=== PATIENT | female | born 1960 | race Caucasian/White ===

== ENCOUNTER 2024-06-20 12:32 | Day surgery (SDC) | payer OTHER ==
[2024-06-19 12:07] LABS: BASOPHILS ABSOLUTE AUTO 0.06 K/mm3 (0.00-0.23); BASOPHILS PERCENT AUTO 1 % (0-2); EOSINOPHILS PERCENT AUTO 4 % (0-6); Hematocrit 42.6 % (33.0-51.0); Hemoglobin 14.2 g/dL (11.5-16.0); IMMATURE GRAN ABSOLUTE AUTO 0.01 K/mm3 (0.00-0.10); IMMATURE GRAN PERCENT AUTO 0 % (0-1); LYMPHOCYTES ABSOLUTE AUTO 1.52 K/mm3 (0.84-5.20); LYMPHOCYTES PERCENT AUTO 21 % (21-46); MONOCYTES PERCENT AUTO 7 % (4-13); Mean Corpuscular HGB 29.5 pg (26.0-34.0); Mean Corpuscular HGB Conc 33.3 g/dL (31.5-36.5); Mean Corpuscular Volume 89 fL (80-100); NEUTROPHILS ABSOLUTE AUTO 4.86 K/mm3 (1.96-9.15); NEUTROPHILS PERCENT AUTO 67 % (41-73); Platelet Count 404 K/mm3 (150-400); RDW Coefficient Variation 13.2 % (11.7-14.2); RDW Standard Deviation 43.2 fL (35.1-46.3); Red Blood Cell Count 4.81 M/mm3 (3.80-5.20); White Blood Cell Count 7.25 K/mm3 (4.00-11.30)
[2024-06-19 14:08] LABS: Bun/Creatinine Ratio 22.2 (12.0-20.0); Calcium, Blood 9.6 mg/dL (8.5-10.1); Creatinine, Blood 0.72 mg/dL (0.40-1.00); Potassium, Blood 3.7 mmol/L (3.5-5.5)
[~2024-06-20] VITALS: Ht 162.6 cm; Wt 111.4 kg
[2024-06-20] VITALS (12 sets, daily range): BP systolic 107–149; BP diastolic 60–81
[~2024-06-20 12:32] MED LIST: Bystolic20 MG PO; CeFAZolin Sodium 2,000 MG in NS 100 ML IV SCH; DIAZ2 PO; LOSA50 PO; Lactated Ringer's 1,000 ML IV SCH; MECL25 PO; VITAMIN D31250 MC2 PO
[2024-06-20] MEDS ORDERED: Bupivacaine 0.5% HCl 5 MG/ML 30MLVIAL ONE (12:42)
--- NOTE | 2024-06-20 13:00 | NUR ---
History, Chart, Medications and Allergies reviewed before start of procedure. Lungs clear T/O to Auscultation. Patient confirms NPO status and agrees with scheduled surgery. Pre-Op teaching done. Pt verbalizes understanding. Patient reports completing Chlorhexadine shower X2 prior to admission to hospital.
[2024-06-20] MEDS ORDERED: FentaNYL Citrate 50 MCG/ML 2 ML Injection ONE ×2 (13:58→15:56)
[2024-06-20] MEDS ORDERED: propofoL 20 ML IV ONE (13:58)
[2024-06-20] MEDS ORDERED: Dexamethasone Sod Phos 10 MG/ML 1ML VIAL ONE (14:20)
[2024-06-20] MEDS ORDERED: ePHEDrine Sulfate 50 MG/ML 1ML Injection ONE (14:28)
[2024-06-20] MEDS ORDERED: Rocuronium Bromide 10 MG/ML 5ML Injection IV ONE (16:32)
[2024-06-20] MEDS ORDERED: Glycopyrrolate 0.2 MG/ML 5ML VIAL ONE (17:24)
[2024-06-20] MEDS ORDERED: HYDROmorphone HCl/Pf 1MG SYR ONE (17:30)
[2024-06-20] MEDS ORDERED: Sugammadex Sodium 200 MG/2ML SDV (100 MG/ML) ONE (17:50)
[2024-06-20] MEDS ORDERED: OxyCODONE 5 mg/Acetamin 325 mg TABLET PO PRN (19:15)
[2024-06-20] MEDS ORDERED: Simethicone 80 MG Chew PO PRN (19:15)
[2024-06-20] MEDS ORDERED: HYDROmorphone HCl/Pf 1MG SYR IV PRN (19:15)
[2024-06-20] MEDS ORDERED: Lactated Ringer's 1,000 ML IV SCH (19:15)
[2024-06-20] MEDS ORDERED: FLU VACC TS2024-25(6MOS UP)/PF 45 MCG/0.5 ML SYRINGE IM SCH (19:15)
[2024-06-20] MEDS ORDERED: Naloxone HCl 0.4MG / ML 1ML Vial IV PRN (19:15)
[2024-06-20] MEDS ORDERED: Promethazine HCl 25 MG Tab PO PRN (19:20)
[2024-06-20] MEDS ORDERED: Promethazine HCl 12.5 MG Supp PR PRN (19:20)
[2024-06-20] MEDS ORDERED: Ketorolac Tromethamine 30mg Vial IV PRN (19:30)
[2024-06-20] MEDS ORDERED: CeFAZolin Sodium 2,000 MG in NS 100 ML IV SCH (21:00)
[2024-06-21 03:24] VITALS: BP 145/71
--- NOTE | 2024-06-21 04:51 | NUR ---
SHIFT SUMMARY PT A&O X4, ABLE TO MAKE NEEDS KNOWN. PT ARRIVED TO SURGICAL UNIT AT APPROXIMATELY 1954. PT SLID TO HOSPITAL BED. PT WAS QUITE SLEEPY UPON ARRIVAL BUT IS NOW MORE AWAKE AND CONVERSATIONAL. VSS, AFEBRILE, SPO2 >93% ON 2L NC. 4 PORT SITES ON ABDOMEN, MID SITE COVERED WITH AQUACEL. ALL DRESSINGS C/D/I. PAIN AND NAUSEA MEDICATED PER EMAR. RONQUILLO IN PLACE DRAINING DARK YELLOW URINE. LR INFUSING. PT IS RESTING QUIETLY IN BED, BREATHING IS EVEN AND UNLABORED, CALL LIGHT IN REACH.
[2024-06-21 07:26] VITALS: BP 131/60
[2024-06-21 12:32] VITALS: BP 130/59
--- NOTE | 2024-06-21 13:25 | NUR ---
DISCHARGE NOTE PT TOLERATING REG DIET AND FLUIDS, PAIN MANAGED W/ PO PAIN MEDS. INCISIONS C/D/I, PT IND TO BATHROOM, VOIDING, BINDER IN PLACE. SCANT VAG BLEEDING. PT DC'D VIA WC TO PRIVATE RIDE HOME W/ BELONGINGS AND DC INSTRUCTIONS.
== END 2024-06-21 13:20 | disposition home or self-care (01) ==
LOC: ORSCMMR 12:32 → ORD 12:45 → ORSCMMR 14:00 → SURS 20:00 → ORSCMMR 23:27
PROVIDERS: Obstetrics & Gynecology
PROC: 0DNP4ZZ Release Rectum, Percutaneous Endoscopic Approach (ICD-10-PCS; principal; 2024-06-20 14:00)
PROC: 0UT9FZZ Resection of Uterus, Via Natural or Artificial Opening With Percutaneous Endoscopic Assistance (ICD-10-PCS; principal; 2024-06-20 14:00)
PROC: 0UT2FZZ Resection of Bilateral Ovaries, Via Natural or Artificial Opening With Percutaneous Endoscopic Assistance (ICD-10-PCS; principal; 2024-06-20 14:00)
PROC: 8E0W4CZ Robotic Assisted Procedure of Trunk Region, Percutaneous Endoscopic Approach (ICD-10-PCS; principal; 2024-06-20 14:00)
PROC: 0UT7FZZ Resection of Bilateral Fallopian Tubes, Via Natural or Artificial Opening With Percutaneous Endoscopic Assistance (ICD-10-PCS; principal; 2024-06-20 14:00)
DX: N95.0 Postmenopausal bleeding (principal); N85.00 Endometrial hyperplasia, unspecified; Z85.3 Personal history of malignant neoplasm of breast; D25.9 Leiomyoma of uterus, unspecified; N73.6 Female pelvic peritoneal adhesions (postinfective); N83.8 Other noninflammatory disorders of ovary, fallopian tube and broad ligament; I10 Essential (primary) hypertension; E66.01 Morbid (severe) obesity due to excess calories; Z68.41 Body mass index [BMI] 40.0-44.9, adult; Z79.899 Other long term (current) drug therapy
CPT/HCPCS: 36415; 80048; 85025; 86850; 86900; 86901; 88307; 94762; A9270; J0690; J1100; J1171; J1885; J2704; J3010; J7120

== ENCOUNTER 2024-06-29 12:42 | Inpatient (IN) | payer OTHER ==
[~2024-06-29] VITALS: Ht 162.6 cm; Wt 107.9 kg
[~2024-06-29 12:42] MED LIST changes: -CeFAZolin Sodium 2,000 MG in NS 100 ML IV SCH; -Lactated Ringer's 1,000 ML IV SCH
[2024-06-29 13:17] LABS: BASOPHILS ABSOLUTE AUTO 0.07 K/mm3 (0.00-0.23); BASOPHILS PERCENT AUTO 0 % (0-2); EOSINOPHILS ABSOLUTE AUTO 0.07 K/mm3 (0.00-0.68); EOSINOPHILS PERCENT AUTO 0 % (0-6); Hematocrit 38.5 % (33.0-51.0); Hemoglobin 13.3 g/dL (11.5-16.0); IMMATURE GRAN ABSOLUTE AUTO 0.11 K/mm3 (0.00-0.10); IMMATURE GRAN PERCENT AUTO 1 % (0-1); LYMPHOCYTES ABSOLUTE AUTO 0.77 K/mm3 (0.84-5.20); LYMPHOCYTES PERCENT AUTO 4 % (21-46); MONOCYTES ABSOLUTE AUTO 1.18 K/mm3 (0.16-1.47); MONOCYTES PERCENT AUTO 7 % (4-13); Mean Corpuscular HGB 30.2 pg (26.0-34.0); Mean Corpuscular HGB Conc 34.5 g/dL (31.5-36.5); Mean Corpuscular Volume 88 fL (80-100); Mean Platelet Volume 9.5 fL (9.1-12.4); NEUTROPHILS ABSOLUTE AUTO 15.97 K/mm3 (1.96-9.15); NEUTROPHILS PERCENT AUTO 88 % (41-73); Platelet Count 498 K/mm3 (150-400); White Blood Cell Count 18.17 K/mm3 (4.00-11.30)
[2024-06-29] MEDS ORDERED: Piperacillin/Tazobactam Sod 4.5 GM in NS 100 ML IV ONE (13:25)
[2024-06-29] MEDS ORDERED: Acetaminophen 325 MG TABLET PO ONE (13:25)
[2024-06-29] MEDS ORDERED: Ondansetron HCl 2 MG / ML 2ML Vial IV ONE (13:25)
[2024-06-29] MEDS ORDERED: NS 1,000 ML IV SCH ×2 (13:25→17:40)
[2024-06-29 13:36] LABS: Albumin/Globulin Ratio 0.6 (0.8-1.8); Bun/Creatinine Ratio 18.5 (12.0-20.0); Calcium, Blood 9.7 mg/dL (8.5-10.1); Creatinine, Blood 0.81 mg/dL (0.40-1.00); Globulin, Blood 4.8 g/dL (2.2-4.0); Potassium, Blood 3.7 mmol/L (3.5-5.5); Total Protein, Blood 7.8 g/dL (6.4-8.2)
[2024-06-29] MEDS ORDERED: Metoclopramide HCl 5MG / ML 2ML Vial IV PRN (17:40)
[2024-06-29] MEDS ORDERED: FLU VACC TS2024-25(6MOS UP)/PF 45 MCG/0.5 ML SYRINGE IM ONE (17:40)
[2024-06-29] MEDS ORDERED: Ondansetron HCl 2 MG / ML 2ML Vial IV PRN (17:40)
[2024-06-29] MEDS ORDERED: FentaNYL Citrate 50 MCG/ML 2 ML Injection IV PRN (17:45)
[2024-06-29] MEDS ORDERED: OxyCODONE 5 mg/Acetamin 325 mg TABLET PO PRN (17:45)
[2024-06-29] MEDS ORDERED: Piperacillin/Tazobactam Sod 3.375 GM in NS 100 ML IV SCH (18:30)
[2024-06-29 18:43] VITALS: BP 126/68
[2024-06-29] MEDS ORDERED: Vancomycin HCL 2,500 MG in NS 500 ML IV ONE (18:50)
[2024-06-29] MEDS ORDERED: Lactobacil 2-S.Thermo-Bifido 1 1 Cap PO SCH (21:00)
[2024-06-30] VITALS (14 sets, daily range): BP systolic 122–162; BP diastolic 62–101
[2024-06-30 01:19] LABS: Source, Urine Clean Catch
[2024-06-30 01:50] LABS: Bilirubin, Urine Neg (Neg); Blood, Urine 5+ (Neg); Glucose Qualitative, Urine Neg (Neg); Ketones, Urine Neg (Neg); Leukocyte Esterase, Urine 3+ (Neg); Nitrite, Urine Neg (Neg); Protein, Urine 2+ (Neg); Urobilinogen, Urine NORM (Normal); pH, Urine 6.5 (5.0-8.0)
[2024-06-30 02:02] LABS: Appearance, Urine Hazy (Clear); Color, Urine Pale Yellow (P-Yellow)
[2024-06-30 02:04] LABS: Amorphous Light (0-Heavy); Bacteria Many /hpf; Mucus Light (0-Heavy); Squamous Epithelial Cells Mod /hpf (Few); White Blood Cells, Urine 50-100 /hpf (0-5)
[2024-06-30 04:40] LABS: BASOPHILS ABSOLUTE AUTO 0.05 K/mm3 (0.00-0.23); BASOPHILS PERCENT AUTO 0 % (0-2); EOSINOPHILS ABSOLUTE AUTO 0.22 K/mm3 (0.00-0.68); EOSINOPHILS PERCENT AUTO 2 % (0-6); Hematocrit 33.6 % (33.0-51.0); Hemoglobin 11.7 g/dL (11.5-16.0); IMMATURE GRAN ABSOLUTE AUTO 0.06 K/mm3 (0.00-0.10); IMMATURE GRAN PERCENT AUTO 1 % (0-1); LYMPHOCYTES ABSOLUTE AUTO 1.16 K/mm3 (0.84-5.20); LYMPHOCYTES PERCENT AUTO 10 % (21-46); MONOCYTES ABSOLUTE AUTO 0.85 K/mm3 (0.16-1.47); MONOCYTES PERCENT AUTO 7 % (4-13); Mean Corpuscular HGB 30.6 pg (26.0-34.0); Mean Corpuscular HGB Conc 34.8 g/dL (31.5-36.5); Mean Corpuscular Volume 88 fL (80-100); Mean Platelet Volume 9.3 fL (9.1-12.4); NEUTROPHILS ABSOLUTE AUTO 9.45 K/mm3 (1.96-9.15); NEUTROPHILS PERCENT AUTO 80 % (41-73); Platelet Count 430 K/mm3 (150-400); RDW Coefficient Variation 13.1 % (11.7-14.2); RDW Standard Deviation 42.4 fL (35.1-46.3); Red Blood Cell Count 3.82 M/mm3 (3.80-5.20); White Blood Cell Count 11.79 K/mm3 (4.00-11.30)
[2024-06-30 05:00] LABS: Bun/Creatinine Ratio 17.2 (12.0-20.0); Creatinine, Blood 0.76 mg/dL (0.40-1.00); Potassium, Blood 3.5 mmol/L (3.5-5.5)
--- NOTE | 2024-06-30 07:28 | NUR ---
SHIFT SUMMARY NOC. PT ARRIVED TO SURGICAL UNIT PRIOR TO SHIFT CHANGE FOR NOC. PT A/O X4, PT AMBULATES TO BR WITH SBA FOR CORD MANAGEMENT. PT'S MIDLINE INCISION ABOVE UMBILICUS ACTIVELY DRAINING PURULENT DRAINAGE. CONSULTED WOUND CARE NURSE MACKENZIE KIM RN, CALCIUM ALGINATE APPLIED WITH SUPER ABSORBENT MEXTRA PAD. DRESSING CHANGED X2 THIS SHIFT. LAP SITES OPEN TO AIR AND CLEAN DRY AND INTACT. PT VOIDING, AND URINE SENT TO LAB THIS SHIFT. PT NPO SINCE 0000, ASIDE FROM ORAL PAIN MED. CALL LIGHT IN REACH.
[2024-06-30] MEDS ORDERED: Losartan Potassium 25 MG Tab PO SCH ×2 (09:00→21:00)
[2024-06-30] MEDS ORDERED: Vancomycin HCL 1,250 MG in NS 250 ML IV SCH (09:00)
[2024-06-30] MEDS ORDERED: Atenolol 25 MG Tab PO SCH (09:00)
[2024-06-30] MEDS ORDERED: propofoL 40 ML IV ONE (10:57)
[2024-06-30] MEDS ORDERED: Bupivacaine 0.5% HCl 5 MG/ML 30MLVIAL ONE (12:34)
--- NOTE | 2024-06-30 12:45 | NUR ---
PT BROUGHT FROM SURGICAL FLOOR TO DAY SURGERY DEPT. TO BE MADE READY FOR SURGERY. PT IDENTIFIED, PROCEDURE/CONSENT VERIFIED, PT NPO, BELONGINGS LEFT IN ROOM, VSS, PAS ON, IV TO 1L LR TKO. SURGEON AND ACP IN TO SEE PT. REPORT GIVEN TO JOB PRINTER APPRENTICE. AND PT WILL BE TAKEN TO OR.
[2024-06-30] MEDS ORDERED: FentaNYL Citrate 50 MCG/ML 2 ML Injection ONE (12:50)
[2024-06-30] MEDS ORDERED: Midazolam HCl 1MG / ML 2ML Vial ONE (12:50)
[2024-06-30] MEDS ORDERED: Rocuronium Bromide 10 MG/ML 5ML Injection IV ONE (12:50)
[2024-06-30] MEDS ORDERED: Ondansetron HCl 2 MG / ML 2ML Vial ONE (13:08)
[2024-06-30] MEDS ORDERED: Ketorolac Tromethamine 30mg Vial ONE (13:08)
[2024-06-30] MEDS ORDERED: Dexamethasone Sod Phos 10 MG/ML 1ML VIAL ONE (13:08)
[2024-06-30] MEDS ORDERED: Sugammadex Sodium 200 MG/2ML SDV (100 MG/ML) ONE ×2 (13:09→13:27)
--- NOTE | 2024-06-30 18:50 | NUR ---
END OF SHIFT NOTE. Pt went back to the OR for a washout this afternoon. Pt arrived back to the unit awake and chatty. Post op vitals all WNL. Pt has since been able to ambulate to the bathroom with standby assistance from staff. OR midline dressing remains CDI. New orders for wound care in chart. Pt having significant amount of family this afternoon. Pt is able to make needs known, call light is within reach.
[2024-07-01 00:56] VITALS: BP 155/78
--- NOTE | 2024-07-01 04:22 | NUR ---
SHIFT SUMMARY NOC. PT POD 1 FOR I&D FOR POST SURGICAL ABSCESS. PT'S MIDLINE INCISION IS C/D/I, PREVIOUS LAPS SITES ARE OPEN TO AIR AND HEALING. PT'S PAIN CONTROLLED WITH ORAL PERCOCET. PT VOIDING URINE AND TOLERATING PO INTAKE. PT A/O X4, AMBULATES TO WITH SBA FOR CORD MANAGEMENT. BED IN LOWEST POSITION, CALL LIGHT IN REACH.
[2024-07-01 05:06] VITALS: BP 144/72
[2024-07-01 07:12] VITALS: BP 129/60
--- NOTE | 2024-07-01 07:24 | NUR ---
DRESSING CHANGE. DRESSING CHANGE PERFORMED THIS MORNING AT 0536. WOUND CARE ORDERS REVIEWED. DAKINS NOT AVAILABLE ON FLOOR. CHARGE NURSE CALLED PHARMACY AND PHARMACY UNABLE TO RELEASE DAKINS WITHOUT CONCENTRATION SPECIFIC ORDER. MOISTENED KERLEX PACKING WITH STERILE WATER AND REMOVED EXCESS LIQUID. PASSED INFORMATION TO DAY SHIFT RN AMANDA TO FOLLOW UP WITH DAKINS ORDER. PT TOLERATED DRESSING CHANGE WELL.
[2024-07-01 08:15] LABS: BASOPHILS ABSOLUTE AUTO 0.02 K/mm3 (0.00-0.23); BASOPHILS PERCENT AUTO 0 % (0-2); EOSINOPHILS ABSOLUTE AUTO 0.02 K/mm3 (0.00-0.68); EOSINOPHILS PERCENT AUTO 0 % (0-6); Hematocrit 32.1 % (33.0-51.0); Hemoglobin 10.9 g/dL (11.5-16.0); IMMATURE GRAN ABSOLUTE AUTO 0.09 K/mm3 (0.00-0.10); IMMATURE GRAN PERCENT AUTO 1 % (0-1); LYMPHOCYTES ABSOLUTE AUTO 0.95 K/mm3 (0.84-5.20); LYMPHOCYTES PERCENT AUTO 9 % (21-46); MONOCYTES ABSOLUTE AUTO 0.68 K/mm3 (0.16-1.47); MONOCYTES PERCENT AUTO 7 % (4-13); Mean Corpuscular Volume 88 fL (80-100); Mean Platelet Volume 9.3 fL (9.1-12.4); NEUTROPHILS ABSOLUTE AUTO 8.33 K/mm3 (1.96-9.15); NEUTROPHILS PERCENT AUTO 83 % (41-73); Platelet Count 443 K/mm3 (150-400); RDW Coefficient Variation 12.8 % (11.7-14.2); RDW Standard Deviation 41.9 fL (35.1-46.3); Red Blood Cell Count 3.63 M/mm3 (3.80-5.20); White Blood Cell Count 10.09 K/mm3 (4.00-11.30)
[2024-07-01 08:35] LABS: Vancomycin, Trough 16.8 ug/mL (5.0-10.0)
[2024-07-01 15:10] VITALS: BP 174/73
[2024-07-01 16:30] VITALS: BP 152/84
[2024-07-01] MEDS ORDERED: Sodium Hypochlorite 480 ML BTL (0.25%) TOP PRN (17:00)
--- NOTE | 2024-07-01 17:24 | NUR ---
DRESSING CHANGE CLARIFIED ORDER FOR DAKIN'S SOLUTION WITH DR. RICK. ORDER PLACED TO PHARMACY. PHARMACY STATES THEY DO NOT HAVE THAT STRENGTH IN STOCK, BUT IT WILL BE ORDERED. STERILE WATER USED IN PLACE OF DAKIN'S SOLUTION. WOUND DRESSED PER ORDERS.
--- NOTE | 2024-07-01 17:48 | NUR ---
SHIFT SUMMARY PT REMAINS ALERT AND ORIENTED. BP ELEVATED THIS AFTERNOON, BUT IMPROVED. PT REMAINS ON RA. PAIN IS MANAGED WITH MEDICATION PER EMAR PER PATIENT. PT UP WALKING TO BATHROOM NEEDED TO VOID. LAP SITES TO ABD OPEN TO AIR. DRESSING TO ABD INCISION CHANGED SEE PREVIOUS NOTE. WILL REPORT OFF TO ONCOMING RN
[2024-07-01 19:04] VITALS: BP 153/96
[2024-07-02 01:10] VITALS: BP 154/86
--- NOTE | 2024-07-02 04:48 | NUR ---
SHIFT SUMMARY POD 1 I&D OF ABDOMEN. PT A/OX4 WITH VSS. DRESSING CDI WITH NO SHADOWING NOTED. PAIN MANAGED PER EMAR. ABX INFUSED PER ORDERS. PT IND IN ROOM. VOIDING AND REPORTS BM DURING SHIFT. TOLERATING PO INTAKE, DENIES N/V. PT CURRENTLY RESTING IN BED WITH CALL LIGHT IN REACH. WILL CONTINUE TO CARE FOR PATIENT AND REPORT TO ONCOMING RN.
[2024-07-02 07:33] VITALS: BP 170/77
--- NOTE | 2024-07-02 07:44 | NUR ---
WOUND CARE DRESSING CHANGE TO MIDLINE ABD WOUND. WET TO DRY REMOVED AND A NEW WET/DRY DRESSING APPLIED/PACKED, COVERED WITH EXU DRY AND SECURED WITH MEDIPORE TAPE. SMALL SS DRAINIAGE NOTED, NO ODOR. PT TOLERATED WELL. EDUCATION PROVIDED.
[2024-07-02 14:48] VITALS: BP 158/77
[2024-07-02] MEDS ORDERED: LOSARTAN-HCTZ1 EACH PO (17:51)
--- NOTE | 2024-07-02 17:52 | NUR ---
SHIFT SUMMARY PT HAS BEEN UPBEAT T/O SHIFT. PLANS BEING ARRANGED FOR DC. IV ABX GIVEN. PT WISHES TO SHOWER THIS AFTERNOON/EVENING THEN 2nd WOUND CARE WILL BE DONE TO COMPLETE BID POST SHOWER.
[2024-07-02 19:07] VITALS: BP 107/74
--- NOTE | 2024-07-03 04:32 | NUR ---
SHIFT SUMMARY POD3 POST-LEOBARDO I&D. NO ACUTE CHANGES OVERNIGHT. CHANGED WET-TO-DRY PACKING DRESSING TO MIDLINE. PT TOLERATED WELL. LAP SITES REMAINED C/D/I. PAIN MANAGED UTILIZING NPIS AND PER EMAR. PT ABLE TO REST DURING SHIFT. A&OX4, PLEASANT & COOPERATIVE WITH CARES. ABLE TO VOICE NEEDS, USED CALL LIGHT APPROPRIATELY. PT VOICED UNDERSTANDING OF PLAN OF CARE, DENIES QUESTIONS/CONCERNS AT THIS TIME.
[2024-07-03 05:07] VITALS: BP 148/81
[2024-07-03 08:13] LABS: BASOPHILS ABSOLUTE AUTO 0.06 K/mm3 (0.00-0.23); BASOPHILS PERCENT AUTO 1 % (0-2); EOSINOPHILS ABSOLUTE AUTO 0.35 K/mm3 (0.00-0.68); EOSINOPHILS PERCENT AUTO 4 % (0-6); Hematocrit 33.7 % (33.0-51.0); Hemoglobin 11.4 g/dL (11.5-16.0); IMMATURE GRAN ABSOLUTE AUTO 0.09 K/mm3 (0.00-0.10); IMMATURE GRAN PERCENT AUTO 1 % (0-1); LYMPHOCYTES PERCENT AUTO 15 % (21-46); MONOCYTES ABSOLUTE AUTO 0.69 K/mm3 (0.16-1.47); MONOCYTES PERCENT AUTO 7 % (4-13); Mean Corpuscular HGB Conc 33.8 g/dL (31.5-36.5); Mean Corpuscular Volume 89 fL (80-100); Mean Platelet Volume 9.2 fL (9.1-12.4); NEUTROPHILS ABSOLUTE AUTO 6.71 K/mm3 (1.96-9.15); NEUTROPHILS PERCENT AUTO 72 % (41-73); Platelet Count 493 K/mm3 (150-400); RDW Coefficient Variation 13.2 % (11.7-14.2)
[2024-07-03 08:19] VITALS: BP 169/89
[2024-07-03 08:38] LABS: Vancomycin, Trough 18.3 ug/mL (5.0-10.0)
[2024-07-03] MEDS ORDERED: Dose Adjust by Pharmacy XX STA (08:42)
--- NOTE | 2024-07-03 09:01 | NUR ---
Dr. Keller here, changing the dressing on the pt's abdomen. Medicated for nausea and for pain at this time.
[2024-07-03] MEDS ORDERED: Losartan/HCTZ 50-12.5 TAB PO SCH (10:00)
[2024-07-03] MEDS ORDERED: Percocet 5-3251 EACH PO (13:51)
[2024-07-03] MEDS ORDERED: AMOX-CLAV 875-1 EAC1 PO (13:53)
[2024-07-03] MEDS ORDERED: VISBIOME 112.51 EACH PO (13:54)
== END 2024-07-03 14:40 | disposition home or self-care (01) | DRG 856 ==
LOC: ER 12:42 → SURS 17:36
PROVIDERS: Family Medicine; Internal Medicine; Nurse Practitioner Acute Care; Physician Assistant; Surgery; ADMIT Internal Medicine
PROC: 5A09357 Assistance with Respiratory Ventilation, Less than 24 Consecutive Hours, Continuous Positive Airway Pressure (ICD-10-PCS; 2024-06-29)
PROC: 3E03329 Introduction of Other Anti-infective into Peripheral Vein, Percutaneous Approach (ICD-10-PCS; 2024-06-29)
PROC: 0JBC0ZZ Excision of Pelvic Region Subcutaneous Tissue and Fascia, Open Approach (ICD-10-PCS; principal; 2024-06-30 09:00)
DX: T81.41XA Infection following a procedure, superficial incisional surgical site, initial encounter (principal); A41.9 Sepsis, unspecified organism; E87.1 Hypo-osmolality and hyponatremia; I96 Gangrene, not elsewhere classified; I10 Essential (primary) hypertension; E86.1 Hypovolemia; J45.909 Unspecified asthma, uncomplicated; E66.01 Morbid (severe) obesity due to excess calories; Z90.710 Acquired absence of both cervix and uterus; Z90.722 Acquired absence of ovaries, bilateral; Z90.79 Acquired absence of other genital organ(s); Z79.899 Other long term (current) drug therapy; Z98.890 Other specified postprocedural states; Z85.3 Personal history of malignant neoplasm of breast; Z68.39 Body mass index [BMI] 39.0-39.9, adult
CPT/HCPCS: 36415; 74177; 80048; 80053; 80202; 81001; 82565; 83605; 83690; 85025; 87040; 87070; 87075; 87076; 87205; 96365-59; 99284-25; A9270; J1100; J1885; J2250; J2405; J2543; J2704; J3010; J3370; J7030; J7040; J7050; Q9967

== ENCOUNTER 2024-07-04 01:56 | Day surgery (SDC) | payer OTHER ==
[~2024-07-04 01:56] MED LIST changes: +AMOX-CLAV 875-1 EAC1 PO; +LOSARTAN-HCTZ1 EACH PO; +Percocet 5-3251 EACH PO; +VISBIOME 112.51 EACH PO
== END 2024-07-04 23:00 | disposition home or self-care (01) ==
LOC: WOUND 01:56
DX: T81.31XD Disruption of external operation (surgical) wound, not elsewhere classified, subsequent encounter (principal); Z85.3 Personal history of malignant neoplasm of breast; Z90.710 Acquired absence of both cervix and uterus
CPT/HCPCS: G0463

== ENCOUNTER 2024-07-11 04:39 | Day surgery (SDC) | payer OTHER | END 2024-07-11 23:29 | disposition home or self-care (01) | LOC: WOUND 04:39 | DX: T81.31XD Disruption of external operation (surgical) wound, not elsewhere classified, subsequent encounter (principal) | CPT/HCPCS: G0463 ==

== ENCOUNTER 2024-07-19 01:05 | Day surgery (SDC) | payer OTHER ==
[2024-07-19] MEDS ORDERED: Triamcinolone Acet 0.1% Cream 15 gm ONE (14:20)
== END 2024-07-19 23:00 | disposition home or self-care (01) ==
LOC: WOUND 01:05
DX: T81.31XA Disruption of external operation (surgical) wound, not elsewhere classified, initial encounter (principal)
CPT/HCPCS: A9270

== ENCOUNTER 2024-07-22 02:57 | Day surgery (SDC) | payer OTHER | END 2024-07-22 23:20 | disposition home or self-care (01) | LOC: WOUND 02:57 | DX: S31.109D Unspecified open wound of abdominal wall, unspecified quadrant without penetration into peritoneal cavity, subsequent encounter (principal); T81.31XD Disruption of external operation (surgical) wound, not elsewhere classified, subsequent encounter; L02.211 Cutaneous abscess of abdominal wall; X58.XXXD Exposure to other specified factors, subsequent encounter; Y83.8 Other surgical procedures as the cause of abnormal reaction of the patient, or of later complication, without mention of misadventure at the time of the procedure | CPT/HCPCS: 36415; 82040; 84134 ==

== ENCOUNTER 2024-07-24 01:19 | Day surgery (SDC) | payer OTHER | END 2024-07-24 23:01 | disposition home or self-care (01) | LOC: WOUND | DX: T81.31XD Disruption of external operation (surgical) wound, not elsewhere classified, subsequent encounter (principal); L02.211 Cutaneous abscess of abdominal wall; S31.109D Unspecified open wound of abdominal wall, unspecified quadrant without penetration into peritoneal cavity, subsequent encounter; Y83.8 Other surgical procedures as the cause of abnormal reaction of the patient, or of later complication, without mention of misadventure at the time of the procedure; X58.XXXD Exposure to other specified factors, subsequent encounter ==

== ENCOUNTER 2024-07-29 00:08 | Day surgery (SDC) | payer OTHER | END 2024-07-29 23:00 | disposition home or self-care (01) | LOC: WOUND 00:08 | DX: L02.211 Cutaneous abscess of abdominal wall (principal); T81.31XD Disruption of external operation (surgical) wound, not elsewhere classified, subsequent encounter; S31.109D Unspecified open wound of abdominal wall, unspecified quadrant without penetration into peritoneal cavity, subsequent encounter; Y83.8 Other surgical procedures as the cause of abnormal reaction of the patient, or of later complication, without mention of misadventure at the time of the procedure; X58.XXXD Exposure to other specified factors, subsequent encounter | CPT/HCPCS: G0463 ==

== ENCOUNTER 2024-08-05 04:59 | Day surgery (SDC) | payer OTHER | END 2024-08-05 23:00 | disposition home or self-care (01) | LOC: WOUND 04:59 | DX: T81.31XD Disruption of external operation (surgical) wound, not elsewhere classified, subsequent encounter (principal); Z90.710 Acquired absence of both cervix and uterus | CPT/HCPCS: A6196; G0463 ==

== ENCOUNTER 2024-08-12 03:14 | Day surgery (SDC) | payer OTHER | END 2024-08-12 23:00 | disposition home or self-care (01) | LOC: WOUND 03:14 | DX: T81.31XD Disruption of external operation (surgical) wound, not elsewhere classified, subsequent encounter (principal); L02.211 Cutaneous abscess of abdominal wall; Z90.710 Acquired absence of both cervix and uterus | CPT/HCPCS: G0463 ==

== ENCOUNTER 2024-08-26 03:11 | Day surgery (SDC) | payer OTHER | END 2024-08-26 23:00 | disposition home or self-care (01) | LOC: WOUND 03:11 | DX: S31.109A Unspecified open wound of abdominal wall, unspecified quadrant without penetration into peritoneal cavity, initial encounter (principal); T81.31XA Disruption of external operation (surgical) wound, not elsewhere classified, initial encounter; L02.211 Cutaneous abscess of abdominal wall | CPT/HCPCS: G0463 ==